=== PATIENT | male | born 1955 | race Caucasian/White ===

== ENCOUNTER → 2023-04-19 | Outpatient (CLI) | payer MEDICARE | END | disposition home or self-care (01) | LOC: RADXRMAIN 17:27 | PROVIDERS: ATTEND Urology | DX: Z53.9 Procedure and treatment not carried out, unspecified reason (principal) ==

== ENCOUNTER → 2023-04-23 | Outpatient (CLI) | payer MEDICARE ==
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
== END | disposition home or self-care (01) ==
LOC: RADXRMAIN 14:59
PROVIDERS: ATTEND Urology
DX: Z18.10 Retained metal fragments, unspecified (principal)

== ENCOUNTER → 2023-04-24 | Outpatient (CLI) | payer MEDICARE ==
--- NOTE | 2023-04-24 12:58 | MR ---
EXAMINATION TYPE: MR Prostate wo/w con DATE OF EXAM: 04/24/2023 8:15 AM COMPARISON: None. CLINICAL INDICATION:Male, 67 years old with history of R97.20 ELEVAT PSA; Elevated PSA. TECHNIQUE: Multi-planar, multi-sequence imaging of the pelvis is performed prior to and following the uncomplicated administration of bolus intravenous gadolinium. CONTRAST: 9 Gadavist Interpretive Criteria: PI-RADS v2.1 SERUM PSA: 19.6 on December 2022 SURGICAL PATHOLOGY: No data available. FINDINGS: Prostatic dimensions: 6.5 x 8.1 x 5.7 cm. Ellipsoid Volume:157.13 (PSA density=0.12 ng/mL/mL) CENTRAL GLAND (Central and Transition Zones/CZ+TZ): Multiple bilateral, heterogenous appearing hypertrophic stromal nodules, without suspicious lesion. M edian lobe hypertrophy with protrusion into the base of the bladder. There is a well-circumscribed a etelvina of increased DWI and low ADC signal which is felt to be within a BPH nodule diffusion imaging ser ies 803 image 112. (PI-RADS 2) PERIPHERAL ZONE (PZ): Since throughout secondary to central gland hypertrophy changes. No evidence of masslike abnormality, or localized perfusional hypervascularity, to further suggest a focus of clinically significant pros navarro cancer. (PI-RADS 2) SEMINAL VESICLES (SV): Symmetric and unremarkable. PERIPROSTATIC TISSUES: Unremarkable. LYMPH NODES: No enlarged pelvic lymph node. REMAINING PELVIS: Bladder wall is within normal limits given distention. No abnormal free or organized intrapelvic fluid collection. No pathologic bowel dilation or mural thickening. Bilateral fat containing inguinal hernias. OSSEOUS STRUCTURES: No suspicious osseous abnormality. IMPRESSION: 1. No specific features for high-risk prostate cancer. Maximum PI-RADS score: 2. 2. Substantial BPH, estimated gland volume 157.13 mL. 3. No suspicious osseous lesion. No lymphadenopathy. No evidence of prostate adenocarcinoma involving the periprostatic tissues.
== END | disposition home or self-care (01) ==
LOC: RADMRIMAIN 06:58
PROVIDERS: ATTEND Urology
DX: N40.0 Benign prostatic hyperplasia without lower urinary tract symptoms (principal); R97.20 Elevated prostate specific antigen [PSA]
CPT/HCPCS: 72197; A9585

== ENCOUNTER → 2023-11-11 | Outpatient (CLI) | payer MEDICARE ==
[2023-11-11 07:43] LABS: African American GFR (CKD) >90 (>60 ml/min/1.73 sqM); Blood Urea Nitrogen 23 mg/dL (9-20); Non-African American GFR(CKD) 81 (>60 ml/min/1.73 sqM)
--- NOTE | 2023-11-11 09:36 | CT ---
EXAMINATION TYPE: CT urogram wo/w con CT DLP: 4210 mGycm, Automated exposure control for dose reduction was used. DATE OF EXAM: 11/11/2023 8:28 AM COMPARISON: None. CLINICAL INDICATION:Male, 68 years old with history of R31.0 HEMATURIA; PHH, microscopic hematuria an d male genitals problems per patient TECHNIQUE: Urogram of the abdomen and pelvis was performed before and after the administration of 100 cc of IV c ontrast Isovue 300 contrast. Delayed imaging was performed. Coronal and sagittal reformats were perfo rmed. One or more CT dose reduction strategies were utilized during this examination. 2D and 3D recon structions are performed to assist visualization of the urinary tract on a separate workstation. FINDINGS: GENITOURINARY: RIGHT KIDNEY AND URETER: Approximately 4 nonobstructing renal calculi with largest in the superior po le measuring up to 4 mm. No hydronephrosis or hydroureter. Approximately 8 thin-walled nonenhancing c ysts identified with largest in the inferior pole measuring up to 2.1 cm . No enhancing renal lesion identified. No urothelial lesions: no filling defect, dilation, stricture or wall thickening. LEFT KIDNEY AND URETER: Approximately 4 nonobstructing renal calculi with largest in the mid portion measuring up to 1.2 cm. No hydronephrosis or hydroureter. Approximately 6 thin wall nonenhancing cyst s identified with the largest in the inferior pole measuring up to 2.4 cm. No enhancing renal lesion identified. No urothelial lesions: no filling defect, dilation, stricture or wall thickening. URINARY BLADDER: Not optimally distended. Prostate gland indents upon the urinary bladder base. There is irregular wall thickening/filling defect involving the right aspect of the posterior of the urina ry bladder (series 14, image 74 and image 113, series 16). This grossly measures 1.8 x 1.5 cm. REPRODUCTIVE: Enlarged prostate gland with coarse peripheral calcifications. The prostate gland measu res up to 6.2 cm in transverse dimension. There is indentation upon the bladder base. Bilateral hydro tristen. ABDOMEN LIVER: Diffusely hypoattenuating, consistent with hepatic steatosis.. GALLBLADDER AND BILE DUCTS: Multiple gallstones identified. No surrounding inflammatory changes. No b iliary ductal dilatation. PANCREAS: Unremarkable. SPLEEN: Unremarkable. ADRENAL GLANDS: Unremarkable. STOMACH AND BOWEL: Small hiatal hernia.. Few scattered distal colonic diverticula without surrounding inflammatory changes. No evidence of bowel obstruction. PERITONEUM: No evidence of pneumoperitoneum, free fluid, or adenopathy. VASCULATURE: Atherosclerotic calcifications are present throughout the abdominal aorta and its branch es. No abdominal aortic aneurysm. MUSCULOSKELETAL: No acute osseous abnormalities. Minimal grade 1 anterolisthesis of L4 on L5 without evidence of pars defects. SOFT TISSUE/ABDOMINAL WALL: Small fat filled umbilical hernia. Fat filled left inguinal hernia. LOWER CHEST: Mild centrilobular emphysematous changes. RCA calcifications. Aortic valvular calcificat ions. Elevation the right hemidiaphragm. IMPRESSION: 1. Irregular wall thickening/filling defect involving the right aspect of the posterior wall of the urinary bladder concerning for possible neoplasm. Direct visualization is recommended. 2. No evidence of suspicious renal neoplasm. Bilateral nonenhancing renal cysts identified. 3. Prostatomegaly. 4. Nonobstructive bilateral renal calculi. 5. Cholelithiasis. 6. Colonic diverticulosis. 7. Hepatic steatosis.
== END | disposition home or self-care (01) ==
LOC: RADCTMAIN 07:11
PROVIDERS: ATTEND Urology
DX: R31.0 Gross hematuria (principal); N40.0 Benign prostatic hyperplasia without lower urinary tract symptoms; K80.20 Calculus of gallbladder without cholecystitis without obstruction; N28.1 Cyst of kidney, acquired; N20.0 Calculus of kidney; K76.0 Fatty (change of) liver, not elsewhere classified; K57.30 Diverticulosis of large intestine without perforation or abscess without bleeding
CPT/HCPCS: 82565; 84520; 74178; 36415; 74400; Q9967

== ENCOUNTER → 2024-03-20 | Outpatient (CLI) | payer MEDICARE, OTHER ==
--- NOTE | 2024-03-20 11:45 | XR ---
2 view chest HISTORY: Smoking history COMPARISON: None TECHNIQUE: PA and lateral views chest obtained. FINDINGS: The lungs are clear of consolidative, interstitial or masslike opacity. There is no pleural effusion, pleural thickening or pneumothorax. The heart, pulmonary vasculature, mediastinum and alec are within normal limits. The osseous structures and soft tissues of the thorax are intact. IMPRESSION: No significant abnormality. No acute cardiopulmonary disease. [facility], , 03/20/2024 11:43 AM
[2024-03-20 15:37] LABS: Basophils # (A) 0.06 X 10*3/uL (0.00-0.10); Basophils % (A) 0.7 %; Eosinophils # (A) 0.31 X 10*3/uL (0.04-0.35); Eosinophils % (A) 3.8 %; HCT 50.3 % (39.6-50.0); HGB 16.2 g/dL (13.0-17.0); Lymphocytes # (A) 2.15 X 10*3/uL (0.90-5.00); Lymphocytes % (A) 26.4 %; MCH 27.1 pg (27.0-32.0); MCHC 32.2 g/dL (32.0-37.0); MCV 84.1 FL (80.0-97.0); Mean Platelet Volume 10.3 FL (9.5-12.2); Monocytes # (A) 0.79 X 10*3/uL (0.20-1.00); Monocytes % (A) 9.7 %; NRBC Per 100 WBC 0 X 10*3/uL (0.00-0.01); Neutrophils # (A) 4.82 X 10*3/uL (1.80-7.70); Neutrophils % (A) 59.2 %; Platelet Count 348 X 10*3/uL (140-440); RBC 5.98 X 10*6/uL (4.40-5.60); RDW 13.8 % (11.5-14.5); WBC 8.15 X 10*3/uL (4.50-10.00)
[2024-03-20 15:59] LABS: ALT 32 U/L (10-49); AST 24 U/L (14-35); Albumin 4.3 g/dL (3.8-4.9); Albumin/Globulin Ratio 1.59 Ratio (1.60-3.17); Alkaline Phosphatase 100 U/L (41-126); BUN/Creat Ratio 17.27 Ratio (12.00-20.00); Calcium 9.6 mg/dL (8.7-10.3); Chloride 102 mmol/L (96-109); Chol/HDL Ratio 2.54 Ratio; Globulin 2.7 g/dL (1.6-3.3); Glucose 97 mg/dL (70-110); LDL Cholesterol,Calculated 64.3 mg/dL (0.0-131.0); Potassium 4.8 mmol/L (3.5-5.5); Sodium 139 mmol/L (135-145); Total Bilirubin 0.5 mg/dL (0.3-1.2)
== END | disposition home or self-care (01) ==
LOC: RADXRMAIN 11:07
PROVIDERS: ATTEND Internal Medicine Clinical Cardiac Electrophysiology
DX: E78.5 Hyperlipidemia, unspecified (principal); I25.84 Coronary atherosclerosis due to calcified coronary lesion; Z87.891 Personal history of nicotine dependence
CPT/HCPCS: 71046; 80053; 80061; 83735; 84443; 85025

== ENCOUNTER → 2024-08-11 | Outpatient (CLI) | payer MEDICARE, OTHER ==
--- NOTE | 2024-08-11 13:03 | XR ---
EXAMINATION TYPE: XR chest 2V DATE OF EXAM: 08/11/2024 12:58 PM COMPARISON: Chest radiographs from 03/20/2024 TECHNIQUE: XR chest 2V Frontal and lateral views of the chest. CLINICAL INDICATION:Male, 69 years old with history of R05.8 Non productive cough; FINDINGS: Lungs/Pleura: There is no evidence of pleural effusion, focal consolidation, or pneumothorax. Chroni c senescent parenchymal change. Pulmonary vascularity: Unremarkable. Heart/mediastinum: Cardiomediastinal silhouette is unremarkable. Musculoskeletal: Multiple level degenerative disc disease changes seen throughout the spine. IMPRESSION: No acute cardiopulmonary disease/process. [facility], , 08/11/2024 1:01 PM
== END | disposition home or self-care (01) ==
LOC: RADXRMAIN 12:42
PROVIDERS: ATTEND Internal Medicine
DX: R05.8 Other specified cough (principal)
CPT/HCPCS: 71046

== ENCOUNTER → 2024-09-10 | Outpatient (CLI) | payer MEDICARE, OTHER ==
--- NOTE | 2024-09-10 08:52 | CTL ---
EXAMINATION TYPE: CT Low Dose Lung DATE OF EXAM: 09/10/2024 7:34 AM COMPARISON: Radiograph 08/11/2024 CLINICAL INDICATION: Male, 69 years old with history of Z12.2 ENCNTR SCREEN FOR MALIGNANT NEOPLASM OF RESP, history of smoker, History of tobacco use. Former smoker with 35 pack-year history TECHNIQUE: Low dose computed tomography scan was performed through the chest at 1 mm thick sections a nd reconstructed images in multiple planes at 1 mm and [address] DLP: 93.6 mGycm, CT CTDI: 2.6 mGy, Automated exposure control for dose reduction was used. CT DIAGNOSTIC QUALITY: Satisfactory FINDINGS: Heart upper limits of normal in size without pericardial effusion. Extensive three-vessel coronary ar emile calcifications are present. Mild aortic valvular calcifications. Ectatic aortic root 3.6 cm and descending aorta 2.9 cm. Conventional arch vessel branching anatomy. E ctatic upper descending thoracic aorta 3.3 cm and lower portion 2.9 cm. No thoracic lymphadenopathy b y CT size criteria. Moderate diffuse bronchial wall thickening. Moderate emphysematous change. No consolidation or pleura l effusion. Some patchy atelectasis or scarring at the anterolateral right base. 4 mm subpleural pulmonary nodule right middle lobe, axial image 165. 4 mm anterior right midlung pulmonary nodule, axial image 128. A couple adjacent 7 mm pulmonary nodules anterior right upper lobe, axial image 111 and 114. Visualized upper abdomen shows a few gallstones measuring up to 1.0 cm. Bones: DISH throughout the mid and lower thoracic spine. IMPRESSION: 1. LungRADS Category 3 (probably benign, 1-2% chance of malignancy); right-sided pulmonary nodules me asuring up to 7 mm on baseline screening. 6 month follow-up low-dose CT chest to reassess. 2. COPD with moderate emphysema. 3. Extensive three-vessel coronary artery calcifications. 4. Incidental small gallstones. CT LUNG RAD AND CT CHEST RECOMMENDATION: Lung-Rad 3 Probably Benign: 6 month follow-up LDCT. S Modifier (other clinically significant findings): None [facility], Workstation: [employer], 09/10/2024 8:50 AM
== END | disposition home or self-care (01) ==
LOC: RADCTMAIN 07:14
PROVIDERS: ATTEND Internal Medicine
DX: Z12.2 Encounter for screening for malignant neoplasm of respiratory organs (principal); J43.9 Emphysema, unspecified; I25.10 Atherosclerotic heart disease of native coronary artery without angina pectoris; R91.8 Other nonspecific abnormal finding of lung field; Z87.891 Personal history of nicotine dependence
CPT/HCPCS: 71271